=== PATIENT | female | born 1965 | race Caucasian/White ===

== ENCOUNTER 2024-09-22 06:00 | Day surgery (SDC) | payer OTHER, SELFPAY ==
--- NOTE | 2024-09-18 14:15 | PAT.ANESEVAL ---
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 When Was Last Pacemaker Check QUESTION #4 FULL TEXT: You/Your Family Experience fever (hyperthermia) with Anesthesia Last Oral Intake Last Oral intake: Last Oral Intake NPO since Meds taken in AM with sips of water? Meds patient instructed to take am of surgery PONV PONV - finished garment inspector: PONV - finished garment inspector Female Yes 09/18/24 11:38 HX of Motion Sickness No 09/18/24 11:38 HX of N/V After Surgery No 09/18/24 11:38 Non-Smoker Yes 09/18/24 11:38 Duration of Surgery greater No 09/18/24 11:38 than 60 minutes Number of Risk Factors 2 09/18/24 11:38 PONV Score Moderate Risk 09/18/24 11:38 Height & Weight Height & Weight: Anesthesia: Height & Weight Height 5 ft 6 in 04/18/24 13:47 Respiratory Assessment Respiratory Assessment - finished garment inspector: Respiratory Tract Infection Hx - finished garment inspector Hx Respiratory Tract Infection No 09/18/24 11:38 STOP Sleep Apnea STOP Sleep Apnea - finished garment inspector: STOP Sleep Apnea - finished garment inspector Hx Hypertension Yes 09/18/24 11:38 Hx Sleep Apnea No 09/18/24 11:38 CPAP BIPAP Do you snore loudly (louder Yes 09/18/24 11:38 than talking or can be heard Do you often feel tired/ No 09/18/24 11:38 fatigued/ sleepy during daytime? Has anyone observed you stop No 09/18/24 11:38 breathing during sleep? STOP Results Positive 09/18/24 11:38 QUESTION #5 FULL TEXT : Do you snore loudly (louder than talking or can be heard through closed doors)? 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 Specify any problems Hx of Preganancy in last 3 No 09/18/24 11:38 Months Nurse Filling Out Transfusion VLEHMAN 09/18/24 11:38 & Questions: Date: 09/18/24 09/18/24 11:38 Time: 11:48 09/18/24 11:38 Patient unable to answer at this time (ie. confused, unrespo /Reproduction History /Reproductive History - finished garment inspector: /Reproductive Hx- finished garment inspector Hx Now No 09/18/24 11:38 Gestational Age (in weeks): EDC: Hx Hx Para Hx Section SAB No 04/18/24 13:45 PFSH Medical History Wears glasses Depression Anxiety History of steroid therapy High cholesterol DVT (deep venous thrombosis) Gastric reflux Non-smoker Hoarseness History of pain when walking History of edema Cardiology follow-up encounter History of stress test Arthritis Acid reflux Hypertension Anxiety and depression Home Medications ?Medication ?Instructions ?Recorded ?Last Taken ?Type alprazolam 0.5 mg tablet (Xanax) 0.5 mg PO QHS PRN sleep 04/18/24 Unknown History amlodipine 5 mg tablet 5 mg PO QHS 04/18/24 Unknown History atorvastatin 20 mg tablet 20 mg PO QDAY 04/18/24 Unknown History celecoxib 50 mg capsule (Celebrex) 50 mg PO BID 04/18/24 Unknown History enalapril maleate 10 mg tablet 10 mg PO BID 04/18/24 Unknown History escitalopram oxalate 20 mg tablet 20 mg PO DAILY 04/18/24 Unknown History hydrochlorothiazide 25 mg tablet 25 mg PO QAM 04/18/24 Unknown History metoprolol tartrate 25 mg tablet 25 mg PO QHS 04/18/24 Unknown History famotidine 40 mg tablet 40 mg PO QHS #30 tabs 07/18/24 Unknown Rx pantoprazole 40 mg tablet,delayed 40 mg PO BID #60 tabs 07/18/24 Unknown Rx release buspirone 5 mg tablet 5 mg PO BID 09/18/24 Unknown History Allergy/AdvReac Type Severity Reaction Status Date / Time No Known Allergies Allergy Verified 09/18/24 11:32 Family History Mother Colon cancer COPD (chronic obstructive pulmonary disease) Diabetes Father Cancer Prostate Grandmother Breast cancer Maternal Surgical History History of ankle surgery S/P knee replacement Social History household members: spouse current occupational status: employed current occupation: [employer] Smoking Status: Never smoker alcohol intake: never substance use type: does not use seatbelt use: always do you feel safe at home: Yes additional social history: - [place] Prior Cardiac Testing/Procedures Prior Cardiac Testing/Procedures: Cardiac Angiogram (Reviewed from 2022; no intervention; luminal irregularities ) Addt'l Information Additional Findings: NSR on previous EKG Recommendation Anesthesia Recommendation Anesthesia recommendation: OPTIMIZED for anesthesia (>4 mets no further testing )
[2024-09-22] VITALS (7 sets, daily range): BP systolic 100–110; BP diastolic 55–66; PULSE 46–58; RESP 16; TEMP 36.3–36.6; O2SAT 96–100; BMI 36.6
[2024-09-22] MEDS: Lactated Ringers 1,000 ML 15 ML IV (06:31)
--- NOTE | 2024-09-22 07:00 | EGD_PTH ---
PATIENT: CHARITO LEAL LOC: EN U#:[id number] AGE/SX: 58/F ROOM: RE09/22/[address]: Dr. Jovi Miranda DO : 1965 BED: DIS: 09/22/2024 SPEC #: [id number] RECD: 09/22/24 11:20 STATUS: CLYDE REAlli #: [id number] JORGE: 09/22/24 07:[address]: Jovi Miranda DEPT: SURGICAL PATHOLOGY RECD BY: Latrell Packer ENTERED: 09/22/24 13:56 SP TYPE: EGD BIOPSY CRIS DR: Pina Alford PA-C Tissues: A - Esophagus, NOS Procedures: Surgery Specimen Level IV HEADER OPERATION: EGD with biopsy PRE-OP DIAGNOSIS: Acid reflux, esophagitis TISSUE SUBMITTED: A- Distal esophagus biopsy MICROSCOPIC DIAGNOSIS A. Esophagus, distal, biopsy: Squamous mucosa with reactive changes. Columnar mucosa with goblet cell metaplasia - see note. Reactive epithelial change, negative for dysplasia. Note: The diagnosis depends on the location of the biopsy and the extent of the mucosal irregularity. If the biopsy originates from the tubular esophagus and the mucosal irregularity extends at least 1 cm above the top of the gastric folds, this represents Islas mucosa. If the biopsy originates from the gastric cardia and/or the mucosal irregularity is less than 1 cm in extent, this represents intestinal metaplasia. MICROSCOPIC DESCRIPTION Slides are reviewed. GROSS DESCRIPTION A. Received in formalin in a container labeled with the patient's name, date of , and distal esophagus biopsy are multiple balbuena-pink fragments of mucosal tissue measuring 1.0 x 0.5 x 0.3 cm in aggregate. Submitted in toto in A1. [facility] 09-22-2024 CPT:21569
--- NOTE | 2024-09-22 07:05 | HP.PCM_ITS ---
[facility] - General General Date of Admission: 09/22/24 Date of Service: 09/22/24 Chief Complaint: hoarseness and globus sensation [facility] Narrative CHARITO LEAL, is a 58 F who presents for complaints of reflux, hoarseness, and globus sensation. PMHx: essential HTN, HLD, never smoker. She reports having seen of ENT for laryngitis in April for the hoarseness and was told that she burnt her vocal cords by using so much throat-numbing spray. She was placed on pantoprazole 40mg daily, a change from omeprazole daily in April as well. She reports no change in her acid reflux and heartburn even with the use of Gaviscon several times throughout the day. She states that she has to sleep with her head elevated on multiple pillows to avoid severe chest pain from reflux. She reports frequent throat clearing, sinus drainage, and increased belching as well. She avoids red sauces, spicy foods, and most alcohols as they worsen symptoms significantly. She denies difficulty chewing and swallowing, abdominal pain, bloating, constipation, diarrhea, hematochezia, and melena. Last colonoscopy done a few years ago and was normal; no records on [facility]. Her mother was diagnosed with colon cancer, her father from complications of prostate cancer. [facility] Medical History Wears glasses Depression Anxiety History of steroid therapy High cholesterol DVT (deep venous thrombosis) Gastric reflux Non-smoker Hoarseness History of pain when walking History of edema Cardiology follow-up encounter History of stress test Arthritis Acid reflux Hypertension Anxiety and depression Home Medications ?Medication ?Instructions ?Recorded ?Last Taken ?Type alprazolam 0.5 mg tablet (Xanax) 0.5 mg PO QHS PRN sle ep 04/18/24 Unknown History amlodipine 5 mg tablet 5 mg PO QHS 04/18/24 Unknown History atorvastatin 20 mg tablet 20 mg PO QDAY 04/18/24 Unkno wn History celecoxib 50 mg capsule (Celebrex) 50 mg PO BID Unknown History enalapril maleate 10 mg tablet 10 mg PO BID 04/18/24 U nknown History escitalopram oxalate 20 mg tablet 20 mg PO DAILY 04/18 Unknown History hydrochlorothiazide 25 mg tablet 25 mg PO QAM 04/18/24 Unknown History metoprolol tartrate 25 mg tablet 25 mg PO QHS 04/18/24 Unknown History famotidine 40 mg tablet 40 mg PO QHS #30 tabs Unknown Rx pantoprazole 40 mg tablet,delayed 40 mg PO BID #60 tab s 07/18/24 Unknown Rx release buspirone 5 mg tablet 5 mg PO BID 09/18/24 Unknown History aspirin 81 mg chewable tablet 1 tab PO DAILY 09/22/24 09/18/24 History (Aspirin Childrens) Allergy/AdvReac Type Severity Reaction Status Date / Time No Known Allergies Allergy Verified 09/22/24 06:20 Family History Mother Colon cancer COPD (chronic obstructive pulmonary disease) Diabetes Father Cancer Prostate Grandmother Breast cancer Maternal Surgical History History of ankle surgery S/P knee replacement Social History household members: spouse current occupational status: employed current occupation: [email or web address] Smoking Status: Never smoker alcohol intake: never substance use type: does not use seatbelt use: always do you feel safe at home: Yes additional social history: - [place] Constitutional Constitutional: Denies fatigue, fever(s), poor appetite, weight gain or weight loss Gastrointestinal Gastrointestinal: Denies belching, bloating, change in bowel habits, change in stool character, chewing difficulty, coffee ground emesis, constipation, cramping, diarrhea, dyspepsia, dysphagia, early satiety, excessive flatus, fecal incontinence, heartburn, hematemesis, hematochezia, hemorrhoids, loose stools, melena, nausea, odynophagia, rectal bleeding, tenesmus, vomiting or weight changes Vital Signs Vital Signs Vital Signs: 09/22/24 06:23 09/22/24 06:23 Temperature 97.9 F Temperature Source Temporal Pulse Rate 58 L Respiratory Rate 16 Respiratory Pattern Normal Blood Pressure 110/66 Blood Pressure Mean 80 Blood Pressure Source Monitor Blood Pressure Position Sitting Blood Pressure Location Left Arm Pulse Ox 98 Oxygen Delivery Method Room Air Weight Weight: 233 lb 11.04 oz Body Mass Index (BMI) 36.6 Physical Exam Const alert, oriented x3, no apparent distress and healthy appearing General Appearance: cooperative GI normal to inspection, nondistended, normoactive bowel sounds, soft to palpation, non-tender and non-distended Percussion: normal to percussion Rectal Exam: deferred Assessment & Plan Assessment/Plan (1) Acid reflux: QUALIFIERS: Esophagitis presence: with esophagitis Esophagitis bleeding: without hemorrhage Qualified Code(s): K21.00 - Gastro-esophageal reflux disease with esophagitis, without bleeding PLAN: Assessment and Plan Assessment and Plan (1) Acid reflux: Status: Chronic Qualifiers: Esophagitis presence: with esophagitis Esophagitis bleeding: without hemorrhage Qualified Code(s): K21.00 - Gastro-esophageal reflux disease with esophagitis, without bleeding (2) Esophagitis: Status: Acute Medications: New pantoprazole Take 30 minutes before breakfast and dinner. 40 mg PO BID 60 tabs 2RF famotidine 40 mg PO QHS 30 tabs 2RF vonoprazan 10 mg PO QDAY 30 tabs 3RF Discontinued pantoprazole Discontinued Reason: Order Changed 40 mg PO QDAY Plan CHARITO LEAL, is a 58 F who presents to the office today for establishment with [facility] for complaints of reflux, hoarseness, and globus sensation. Differential diagnoses include: PUD, GERD, LS vs SSBE, dysfunction of gastroesophageal sphincter. Discussed care plan with her. * increase pantoprazole to 40mg PO twice daily * add famotidine 40mg PO qhs * obtain auth for vonoprazan 10mg PO daily * schedule EGD with TELLO * office FU after EGD to discuss results \
--- NOTE | 2024-09-22 07:14 | PCM.PRE.AN2 ---
ASA Classification* ASA Classification ASA Classification: 2 Assessment & Plan Anesthesia* Anesthesia Assessment Anesthesia Assessment: Discussed sedation and/or anesthesia options, risks, benefits, and alternatives with patient/parents/legal guardian/POA. Questions invited. The patient/parents/legal guardian/POA seems to understand and agrees to proceed with anesthesia plan. Reviewed the physical assessment, medical history, allergy history and patient home medications list prior to surgery/procedure/anesthetic and documented any changes. Performed airway and anesthesia risk assessments. 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 When Was Last Pacemaker Check QUESTION #4 FULL TEXT: You/Your Family Experience fever (hyperthermia) with Anesthesia Last Oral Intake Last Oral intake: Last Oral Intake NPO since 20:30 09/22/24 06:23 Meds taken in AM with sips of water? 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 Female Yes 09/18/24 11:38 HX of Motion Sickness No 09/18/24 11:38 HX of N/V After Surgery No 09/18/24 11:38 Non-Smoker Yes 09/18/24 11:38 Duration of Surgery greater No 09/18/24 11:38 than 60 minutes Number of Risk Factors 2 09/18/24 11:38 PONV Score Moderate Risk 09/18/24 11:38 Height & Weight Height & Weight: Anesthesia: Height & Weight Height 5 ft 7 in 09/22/24 06:23 Weight: 106 kg 09/22/24 06:23 Body Mass Index (BMI) 36.6 09/22/24 06:23 Respiratory Assessment Respiratory Assessment - plant protection guard: Respiratory Tract Infection Hx - plant protection guard Hx Respiratory Tract Infection No 09/18/24 11:38 STOP Sleep Apnea STOP Sleep Apnea - plant protection guard: STOP Sleep Apnea - plant protection guard Hx Hypertension Yes 09/18/24 11:38 Hx Sleep Apnea No 09/18/24 11:38 CPAP BIPAP Do you snore loudly (louder Yes 09/18/24 11:38 than talking or can be heard Do you often feel tired/ No 09/18/24 11:38 fatigued/ sleepy during daytime? Has anyone observed you stop No 09/18/24 11:38 breathing during sleep? STOP Results Positive 09/18/24 11:38 QUESTION #5 FULL TEXT : Do you snore loudly (louder than talking or can be heard through closed doors)? Tobacco Use History Tobacco Use History - plant protection guard: Tobacco Use History - plant protection guard Tobacco Use Smoking Status Never smoker 09/18/24 11:38 Hx Tobacco Use No 09/18/24 11:38 Years Smoking Packs Smoked per Day Smoking Cessation Date was within the last 15 years Hx Smoking Cessation Date Hx Smoking Cessation Counseling Hematologic Medial History Hematologic Hx - plant protection guard: Hematologic Medical Hx - acid filler Hx of Blood Transfusion No 09/18/24 11:38 Hx of Transfusion in last 3 No 09/18/24 11:38 Months Date of Last Transfusion (if within last 3 months) Ever experience any problems No 09/18/24 11:38 with transfusion(s)? Specify any problems Hx of Preganancy in last 3 No 09/18/24 11:38 Months Nurse Filling Out Transfusion VLEHMAN 09/18/24 11:38 & Questions: Date: 09/18/24 09/18/24 11:38 Time: 11:48 09/18/24 11:38 Patient unable to answer at this time (ie. confused, unrespo /Reproduction History /Reproductive History - plant protection guard: /Reproductive Hx- plant protection guard Hx Now No 09/18/24 11:38 Gestational Age (in weeks): EDC: Hx Hx Para Hx Section SAB No 04/18/24 13:45 Active Medications Active Medications: Current Medications Generic Name Dose Route Start Last Admin Trade Name Freq PRN Reason Stop Dose Admin Lactated Ringer's 1,000 mls @ 15 mls/hr 09/22/24 06:15 09/22/24 06:31 IV 15 mls/hr .Q48H MING Administration PFSH Medical History Wears glasses Depression Anxiety History of steroid therapy High cholesterol DVT (deep venous thrombosis) Gastric reflux Non-smoker Hoarseness History of pain when walking History of edema Cardiology follow-up encounter History of stress test Arthritis Acid reflux Hypertension Anxiety and depression Home Medications ?Medication ?Instructions ?Recorded ?Last Taken ?Type alprazolam 0.5 mg tablet (Xanax) 0.5 mg PO QHS PRN sleep 04/18/24 Unknown History amlodipine 5 mg tablet 5 mg PO QHS 04/18/24 Unknown History atorvastatin 20 mg tablet 20 mg PO QDAY 04/18/24 Unknown History celecoxib 50 mg capsule (Celebrex) 50 mg PO BID 04/18/24 Unknown History enalapril maleate 10 mg tablet 10 mg PO BID 04/18/24 Unknown History escitalopram oxalate 20 mg tablet 20 mg PO DAILY 04/18/24 Unknown History hydrochlorothiazide 25 mg tablet 25 mg PO QAM 04/18/24 Unknown History metoprolol tartrate 25 mg tablet 25 mg PO QHS 04/18/24 Unknown History famotidine 40 mg tablet 40 mg PO QHS #30 tabs 07/18/24 Unknown Rx pantoprazole 40 mg tablet,delayed 40 mg PO BID #60 tabs 07/18/24 Unknown Rx release buspirone 5 mg tablet 5 mg PO BID 09/18/24 Unknown History aspirin 81 mg chewable tablet 1 tab PO DAILY 09/22/24 09/18/24 History (Aspirin Childrens) Allergy/AdvReac Type Severity Reaction Status Date / Time No Known Allergies Allergy Verified 09/22/24 06:20 Family History Mother Colon cancer COPD (chronic obstructive pulmonary disease) Diabetes Father Cancer Prostate Grandmother Breast cancer Maternal Surgical History History of ankle surgery S/P knee replacement Social History household members: spouse current occupational status: employed current occupation: [employer] Smoking Status: Never smoker alcohol intake: never substance use type: does not use seatbelt use: always do you feel safe at home: Yes additional social history: - [place] Review of Systems (Anesthesia) ROS Narrative System reviewed and no additional complaints, except as documented.
--- NOTE | 2024-09-22 08:03 | OP.CCLET_ITS ---
09/22/2024 [facility] Re : Upper GI endoscopy procedure for Brooklynn Alford This procedure was performed on Sunday, September 22, 2024. My impressions and recommendations are as follows: Impressions : - Z-line irregular, 40 cm from the incisors. Biopsied. - No gross lesions in the entire stomach. - A few gastric polyps. - No gross lesions in the entire examined duodenum. Recommendations : - Discharge patient to home. - Resume previous diet. - Continue present medications. - Await pathology results. My findings are described in the full procedure note, which is enclosed. If I can be of further assistance, please feel free to contact me at . Sincerely, Jovi Miranda, 09/22/2024 8:02:45 AM This report has been signed electronically.
--- NOTE | 2024-09-22 08:03 | OP.EGD_ITS ---
Patient Name: Brooklynn Sotelo Procedure Date: 09/22/2024 7:43 AM Date of : 1965 Age: 58 Procedure: Upper GI endoscopy Indications: Suspected esophageal reflux, Failure to respond to medical treatment Providers: Jovi Miranda DO Referring MD: Pina Alford Medicines: Monitored Anesthesia Care Patient Profile: This is a 58 year old female. Refer to note in patient chart for documentation of history and physical. Patient has symptoms of chronic cough, chronic heartburn, chronic nausea and chronic throat burning. Complications: No immediate complications. Procedure: Pre-Anesthesia Assessment: - Prior to the procedure, a History and Physical was performed, and patient medications and allergies were reviewed. The patient is competent. The risks and benefits of the procedure and the sedation options and risks were discussed with the patient. All questions were answered and informed consent was obtained. Patient identification and proposed procedure were verified by the physician in the pre-procedure area. Mental Status Examination: alert and oriented. Airway Examination: normal oropharyngeal airway and neck mobility. Respiratory Examination: clear to auscultation. CV Examination: normal. Prophylactic Antibiotics: The patient does not require prophylactic antibiotics. Prior Anticoagulants: The patient has taken no anticoagulant or antiplatelet agents except for NSAID medication. ASA Grade Assessment: II - A patient with mild systemic disease. After reviewing the risks and benefits, the patient was deemed in satisfactory condition to undergo the procedure. The anesthesia plan was to use monitored anesthesia care (MAC). Immediately prior to administration of medications, the patient was re-assessed for adequacy to receive sedatives. The heart rate, respiratory rate, oxygen saturations, blood pressure, adequacy of pulmonary ventilation, and response to care were monitored throughout the procedure. The physical status of the patient was re-assessed after the procedure. After obtaining informed consent, the endoscope was passed under direct vision. Throughout the procedure, the patient's blood pressure, pulse, and oxygen saturations were monitored continuously. The gastroscope was introduced through the mouth, and advanced to the second part of duodenum. The upper GI endoscopy was accomplished without difficulty. The patient tolerated the procedure well. Scope In: 7:53:49 AM Scope Out: 7:56:51 AM Total Procedure Duration Time 0 hours 3 minutes 2 seconds Findings: The Z-line was irregular and was found 40 cm from the incisors. Biopsies were taken with a cold forceps for histology. Verification of patient identification for the specimen was done. Estimated blood loss was minimal. No gross lesions were noted in the entire examined stomach. A few diminutive hyperplastic polyps with no bleeding and no stigmata of recent bleeding were found in the gastric fundus. No gross lesions were noted in the entire examined duodenum. Impression: - Z-line irregular, 40 cm from the incisors. Biopsied. - No gross lesions in the entire stomach. - A few gastric polyps. - No gross lesions in the entire examined duodenum. Recommendation: - Discharge patient to home. - Resume previous diet. - Continue present medications. - Await pathology results. Procedure Code(s): --- Professional --- 74670, Esophagogastroduodenoscopy, flexible, transoral; with biopsy, single or multiple CPT copyright 2021 [employer]. All rights reserved. The codes documented in this report are preliminary and upon distance education coordinator review may be revised to meet current compliance requirements. Jovi Miranda DO 09/22/2024 8:02:45 AM This report has been signed electronically. Number of Addenda: 0 Note Initiated On: 09/22/2024 7:43 AM
--- NOTE | 2024-09-22 08:05 | PCM.POST.ANE ---
Anesthesia: Postop Eval I Current Vital Signs Temperature: 97.4 F Pulse Rate: 47 Blood Pressure: 100/55 Respiratory Rate: 16 Pulse Ox: 96 Oxygen Delivery Method: Room Air Assessment Airway patent: Yes Spontaneous unlabored respirations: Yes Mental status: Awake nausea: No Vomiting: No Anesthesia Complication: No Fluid Hydration Crystalloid volume administer (ml): 300 Total IV fluid infused: 300 Progress Note Anesthesia document: Postop Eval 1 completed: Yes
--- NOTE | 2024-09-22 09:09 | POSTOPAN2_ITS ---
Anesthesia Postop Eval I Sum Postop Eval Completion status Anesthesia document: Postop Eval 1 completed: Yes Anesthesia Postop Eval I Summary Anesthesia Postop Eval I Summary: Anesthesia Postop Eval I: Assessment Summary Airway patent Yes 09/22/24 08:06 COMPLIANCE [email or web address] Spontaneous unlabored Yes 09/22/24 08:06 COMPLIANCE [email or web address] respirations Mental status Awake 09/22/24 08:06 COMPLIANCE [email or web address] nausea No 09/22/24 08:06 COMPLIANCE [email or web address] Vomiting No 09/22/24 08:06 COMPLIANCE [email or web address] Anesthesia Postop Eval I: Fluid Summary Crystalloid volume administer 300 09/22/24 08:06 COMPLIANCE [email or web address] (ml) Colloids volume administered ( ml) Blood Product volume administered (ml) Total IV fluid infused 300 09/22/24 08:06 COMPLIANCE [email or web address] Anesthesia Postop Eval I: Summary Notes Anesthesia Complication No 09/22/24 08:06 COMPLIANCE [email or web address] Anesthesia Complication Comment: Post-operative progress note Anesthesia: Postop Eval II Evaluation Mental status: Awake Pain Level: 0 nausea: No Vomiting: No
--- NOTE | 2024-09-22 09:09 | PCM.POSTANE2 ---
Anesthesia Postop Eval I Sum Postop Eval Completion status Anesthesia document: Postop Eval 1 completed: Yes Anesthesia Postop Eval I Summary Anesthesia Postop Eval I Summary: Anesthesia Postop Eval I: Assessment Summary Airway patent Yes 09/22/24 08:06 [email or web address] Spontaneous unlabored Yes 09/22/24 08:06 [email or web address] [email or web address] respirations Mental status Awake 09/22/24 08:06 [email or web address] nausea No 09/22/24 08:06 [email or web address] Vomiting No 09/22/24 08:06 [email or web address] Anesthesia Postop Eval I: Fluid Summary Crystalloid volume administer 300 09/22/24 08:06 [email or web address] (ml) Colloids volume administered ( ml) Blood Product volume administered (ml) Total IV fluid infused 300 09/22/24 08:06 [email or web address] Anesthesia Postop Eval I: Summary Notes Anesthesia Complication No 09/22/24 08:06 [email or web address] Anesthesia Complication Comment: Post-operative progress note Anesthesia: Postop Eval II Evaluation Mental status: Awake Pain Level: 0 nausea: No Vomiting: No
== END 2024-09-22 08:42 | disposition home or self-care (01) ==
LOC: EN 06:02 → AC 06:03
PROVIDERS: PCP Family Medicine; Referring Provider Family Medicine; Visit Provider Internal Medicine Gastroenterology
PROC: (CPT 43235; principal; 2024-09-22 06:55)
DX: K31.7 Polyp of stomach and duodenum (principal); K21.00 Gastro-esophageal reflux disease with esophagitis, without bleeding; Z79.82 Long term (current) use of aspirin; E78.00 Pure hypercholesterolemia, unspecified; I10 Essential (primary) hypertension; R49.0 Dysphonia; Z79.899 Other long term (current) drug therapy
CPT/HCPCS: 43239; 88305